=== PATIENT | female | born 1980 | race Caucasian/White ===

== ENCOUNTER → 2016-10-10 | Outpatient (CLI) | payer OTHER ==
--- NOTE | 2016-10-11 06:42 | US ---
EXAMINATION TYPE: US transvaginal DATE OF EXAM: 10/10/2016 COMPARISON: NONE CLINICAL HISTORY: Mennorhagia N92.0,. Irregular cycles, recent removal of IUD TECHNIQUE: TV Date of LMP: 09/24/2016 EXAM MEASUREMENTS: Uterus: 9.7 x 5.4 x 6.0 cm Endometrial Stripe: 1.8 cm Right Ovary: 4.0 x 2.8 x 2.1 cm Left Ovary: 2.6 x 2.1 x 1.9 cm 1. Uterus: Anteverted posterior fundal fibroid seen 2. Endometrium: thickened 3. Right Ovary: wnl 4. Left Ovary: wnl 5. Bilateral Adnexa: wnl 6. Posterior cul-de-sac: wnl Endometrium appears thickened up to 19 mm. Posteriorly in the fundus there is 1.6 x 1.5 cm oval hypoe choic well-circumscribed lesion felt to reflect fibroid subserosal in location. Some peripheral follicles are seen scattered throughout right ovary. No suspicious adnexal masses not ed. IMPRESSION: Abnormal thickening of endometrium, probable 1.6 cm subserosal posterior fibroid.
== END | disposition home or self-care (01) ==
LOC: RADUSWWP 15:11
PROVIDERS: ATTEND Obstetrics & Gynecology
DX: R93.8 Abnormal findings on diagnostic imaging of other specified body structures (principal)
CPT/HCPCS: 76830

== ENCOUNTER → 2016-10-10 | Outpatient (CLI) | payer OTHER ==
--- NOTE | 2016-10-12 10:53 | MM ---
Reason for exam: screening (asymptomatic). Baseline mammogram. History: Family history of breast cancer in 3 maternal aunts and breast cancer in paternal aunt. Excisional biopsy of the left breast. Excisional biopsy of the right breast. Physical Findings: Nurse did not find any significant physical abnormalities on exam. MG Screening Mammo w CAD Bilateral CC and MLO view(s) were taken. The breast tissue is extremely dense which could obscure a lesion on mammography. Finding: There are calcifications in the upper outer quadrant, posterior position of the right breast. Linear scar marker for bilateral breast. These results were verbally communicated with the patient and result sheet given to the patient on 10/10/16. ASSESSMENT: Incomplete: need additional imaging evaluation, BI-RAD 0 RECOMMENDATION: Special view mammogram of the right breast. If lesion persists on supplemental views, image directed ultrasound is recommended. [facility] will attempt to contact patient to return for supplemental views and ultrasound if indicated.
--- NOTE | 2016-10-12 10:54 | MM ---
Reason for exam: additional evaluation requested from abnormal screening. History: Family history of breast cancer in 3 maternal aunts and breast cancer in paternal aunt. Excisional biopsy of the left breast. Excisional biopsy of the right breast. Physical Findings: Breast exam preformed at baseline screening. MG Work Up Mamm w CAD RT CC, MLO, ML, XCCL, ML with magnification, and XCCL with magnification view(s) were taken of the right breast. Finding: There are some layering fine pleomorphic, heterogeneous calcifications in the upper outer quadrant, posterior position of the right breast. These results were verbally communicated with the patient and result sheet given to the patient on 10/10/16. ASSESSMENT: Suspicious, BI-RAD 4 RECOMMENDATION: Stereotactic core biopsy of the right breast. Called Dr. Leonardo with mammographic findings and has scheduled an appointment for the patient for 11/09/16 at 10:[address] Cooper. Biopsy scheduled for 10/16/16 at 2:20. PRELIMINARY REPORT CALLED AND FAXED TO DR. COOPER ON 10/10/16.AT 300/TMP.
== END | disposition home or self-care (01) ==
LOC: RADMAMWWP 15:07
PROVIDERS: ATTEND Obstetrics & Gynecology
DX: R92.1 Mammographic calcification found on diagnostic imaging of breast (principal)
CPT/HCPCS: G0202; G0206; 76830

== ENCOUNTER → 2016-10-16 | Day surgery (SDC) | payer OTHER ==
[~2016-10-16] MED LIST: ALPRAZolam 0.25 MG TAB ONE; BACITRACIN OINT 1 EACH PACKET TOPICAL ONE; LIDOCAINE 1% INJ 10MG/ML (20 ML MDV) ONE; LIDOCAINE 1%-EPI 1:100,000 20 ML VIAL ONE
--- NOTE | 2016-10-16 15:41 | MM ---
EXAMINATION TYPE: MG stereo VAD BX RT DATE OF EXAM: 10/16/2016 COMPARISON: Mammogram and workup October 10, 2016 CLINICAL HISTORY: History of benign excisional biopsies in both breasts approximate 10 years ago presents with abnormal mammogram, suspicious group of calcifications right breast. TECHNIQUE: Stereotactic guided core biopsy of right breast with clip placement and follow-up mammogram. FINDINGS: The procedure of stereotactic guided core biopsy was explained to the patient. Benefits, alternatives, and risks were discussed. An informed consent was then obtained. [facility]. Shortness pathway was lateral approach. I performed the localization, then performed the remainder of the procedure. Overlying skin is cleansed with Betadine. Lidocaine is used as anesthetic into the skin and subcutaneous tissue. Lidocaine with epinephrine is used as anesthetic into the deeper tissue. A vacuum assisted biopsy gun was used to obtain multiple core samples. The patient tolerated the procedure well without any immediate complication. The patient was kept in the radiology department for short stay after the procedure and then discharged home in stable condition. Targeted calcifications are identified in specimen mammogram. Post biopsy mammogram shows the clip to appear in satisfactory position relative to the targeted area of concern on the preprocedure images. Some residual calcifications are present. IMPRESSION: SUCCESSFUL, UNCOMPLICATED STEREOTACTIC GUIDED CORE BIOPSY OF AREA OF CONCERN IN THE RIGHT BREAST, FULL PATHOLOGY RESULTS TO FOLLOW. Intermediate index of suspicion noted at time of procedure. Pathology Results: Benign BREAST, RIGHT, CORE BIOPSY: FIBROCYSTIC CHANGES INCLUDING FIBROSIS, CYSTS, ADENOSIS AND CALCIFICATIONS. PSEUDOANGIOMATOUS STROMAL HYPERPLASIA (PASH). Recommendation Follow up mammogram of the right breast in 6 months. BRYSON
== END ==
LOC: RADMAMWWP 13:23
PROVIDERS: ATTEND Surgery
DX: N60.11 Diffuse cystic mastopathy of right breast (principal); N60.21 Fibroadenosis of right breast; N62 Hypertrophy of breast; R92.1 Mammographic calcification found on diagnostic imaging of breast; R92.8 Other abnormal and inconclusive findings on diagnostic imaging of breast
CPT/HCPCS: 88305; 19081; A4648; J2001

== ENCOUNTER → 2017-07-09 | Outpatient (CLI) | payer MEDICAID ==
[2017-07-09 16:39] LABS: HCT 39.9 % (34.0-46.0); HGB 13.2 gm/dL (11.4-16.0); MCH 31.4 pg (25.0-35.0); MCHC 33.2 g/dL (31.0-37.0); MCV 94.3 fL (80.0-100.0); Mean Platelet Volume 7.4; Platelet Count 237 k/uL (150-450); RBC 4.23 m/uL (3.80-5.40); RDW 11.6 % (11.5-15.5); WBC 8.6 k/uL (3.8-10.6)
[2017-07-09 17:09] LABS: Glucose 99 mg/dL (74-99)
--- NOTE | 2017-07-09 17:48 | US ---
EXAMINATION TYPE: US OB <= 14 wk fetus DATE OF EXAM: 07/09/2017 COMPARISON: NONE CLINICAL HISTORY: Z36 confirm dates; ; unknown LMP EXAM PERFORMED: Transabdominal (TA) EXAM MEASUREMENTS: GESTATIONAL AGE / DATING Physician Established: Not yet established Dates by LMP: LMP unknown Dates by First Scan: No previous; this is first scan Dates by Current Scan for: (8 weeks/2 days) EDC: 02/16/2018 MATERNAL ANATOMY Uterus: 13.3 x 7.9 x 6.4cm; small uterine fibroid = 1.6 x 1.8 x 1.4cm vs. small hypoechoic area withi n larger oval fibroid is noted posterior uterine wall = 6.4 x 4.6 x 3.6cm Right Ovary: 42 x 1.9 x 2.1cm Left Ovary: 3.2 x 2.0 x 1.8cm Presence of free fluid: small amount of free fluid is seen in posterior CDS Presence of corpus luteal cyst: noted in right ovary = 2.6 x 1.7 x 1.3cm Presence of subchorionic bleed: 1.8 x 1.7 x 1.0cm noted upper uterus. GESTATION / SURVEY CRL: 1.8cm (8 weeks/2 days) Yolk Sac (normal less than 6mm): 4.2mm Heart Rate: 174 bpm Rhythm: Normal IUP: Viable IUP Date of LMP: unknown Beta HcG (if available): NA Single, live IUP,8 weeks/2 days, EDC: 02/16/2018, HR 174bpm; subchorionic hemorrhage is noted Urinary bladder is sonolucent. IMPRESSION: 1. Single intrauterine gestation estimated at 8 weeks 2 days gestation based on the crown-rump length . Cardiac activity measures 174 bpm. 2. Uterine fibroid. 3. Right ovarian cyst. 4. Subchorionic hemorrhage measuring 1.8 x 1.7 x 1.0 cm.
[2017-07-10 01:33] LABS: HIV AB P24 Non-Reactive (Non-Reactive); HIV P24 AG Non-Reactive (Non-Reactive)
== END | disposition home or self-care (01) ==
LOC: RADUSWWP 15:43
PROVIDERS: ATTEND Obstetrics & Gynecology
DX: O34.11 Maternal care for benign tumor of corpus uteri, first trimester (principal); D25.9 Leiomyoma of uterus, unspecified; O34.81 Maternal care for other abnormalities of pelvic organs, first trimester; N83.201 Unspecified ovarian cyst, right side; O20.8 Other hemorrhage in early pregnancy; O26.819 Pregnancy related exhaustion and fatigue, unspecified trimester; Z3A.08 8 weeks gestation of pregnancy
CPT/HCPCS: 76801; 82565; 82947; 85027; 86762; 86780; 86850; 86900; 86901; 87340; 87390

== ENCOUNTER 2017-12-15 12:32 | Outpatient (CLI) | payer MEDICAID ==
[2017-12-15 13:13] VITALS: BP 131/63; PULSE 87; RESP 17; TEMP 97.7
--- NOTE | 2017-12-16 09:49 | P.MSEPDOC ---
Presenting Problems - Arrival Data Date of Arrival on Unit: 12/15/17 Time of Arrival on Unit: 12:32 Mode of Transport: Ambulatory - Complaint OB-Reason for Admission/Chief Complaint: Decreased Movement Medical History - Information : 5 Para: 4 Term: 4 : 0 Abortions: Spontaneous or Elective: 0 Number of Living Children: 4 - Gestational Age Gestational Age by NITIN (wks/days): 31 Weeks and 0 Days Review of Systems - Review of Systems Constitutional: No problems Breast: No problems ENT: No problems Cardiovascular: No problems Respiratory: No problems Gastrointestinal: No problems Genitourinary: No problems Musculoskeletal: No problems Neurological: No problems Skin: No problems Vital Signs - Temperature Temperature: 97.7 F Temperature Source: Oral - Pulse Right Brachial Pulse Rate: 87 Pulse Assessment Method: Automatic Cuff - Respirations Respiratory Rate: 17 Oxygen Delivery Method: Room Air O2 Sat by Pulse Oximetry: 100 - Blood Pressure Right Arm Blood Pressure: 131/63 Blood Pressure Mean: 85 Blood Pressure Source: Automatic Cuff Medical Screen Scoring (Pre) - Cervical Exam Dilation: Exam Deferred Effacement: Exam Deferred Membranes: Intact - Uterine Contractions Frequency: N/A Duration: N/A Intensity: N/A - Maternal Vital Signs Maternal Temperature: N/A Maternal Blood Pressure: N/A Signs of Preeclampsia: N/A Maternal Respirations: N/A - Pain Assessment Pain Scale Used: Numeric (1 - 10) Pain Intensity: 0 - Maternal Trauma Maternal Trauma: N/A - Assessment Baseline FHR: 135 Heart Rate - NICHD Category: Category I (Normal) = 0 NST: Reactive Position: N/A Station: N/A - Total Score Total Score (Pre): 0 - Level of Risk Level of Risk: Low (0-5) Physician Notification (Pre) - Physician Notified Physician Notified Date: 12/15/17 Physician Notified Time: 12:56 Physician/Practitioner Notifed:: Dr Sheth Spoke With: Dr Sheth New Order Received: Yes ([facility]) - Notification Comment Comment: pt here with c/o decreased movement, pt can feel moving but just feels "different" Disposition - Disposition OB Disposition: Discharge to home, Written follow up instructions reviewed Discharge Date: 12/15/17 Discharge Time: 13:00 I agree with the RN Medical Screening Exam: Yes Risk & Benefit of care provided described in d/c instruction: Yes Diagnosis: RELATED CONDITIONS, UNSPECIFIED, THIRD TRIMESTER ( Decreased movement)
== END 2017-12-15 13:00 | disposition home or self-care (01) ==
LOC: FBPOP 12:32
PROVIDERS: ATTEND Obstetrics & Gynecology
DX: O36.8130 Decreased fetal movements, third trimester, not applicable or unspecified (principal); Z3A.31 31 weeks gestation of pregnancy
CPT/HCPCS: 59025; 99213

== ENCOUNTER 2018-02-10 07:00 | Inpatient (IN) | payer MEDICAID ==
[2018-02-10] MEDS ORDERED: OXYTOCIN 20 UNITS/1000 ML NS 1,000 ML IV SCH ×2 (07:27→17:15)
[2018-02-10] MEDS ORDERED: LIDOCAINE 0.5% (PF) 5 MG/ML (50 ML SDV) SQ PRN (07:27)
[2018-02-10] MEDS ORDERED: METHYLERGONOVINE 0.2 MG/ML 1 ML AMP IM PRN (07:27)
[2018-02-10] MEDS ORDERED: TERBUTALINE 1 MG/ML VIAL SQ PRN (07:27)
[2018-02-10] MEDS ORDERED: CARBOPROST TROMETHAMINE 250 MCG/ML 1 ML AMP IM PRN (07:27)
[2018-02-10] MEDS ORDERED: OXYTOCIN 10 UNIT/ML 1 ML VIAL IM PRN (07:27)
[2018-02-10 07:40] VITALS: BMI 27.8
[2018-02-10] MEDS: LACTATED RINGERS 1,000 ML IV SCH ×2 (07:45→12:32)
[2018-02-10 08:04] LABS: Basophils % (A) 0 %; Eosinophils # (A) 0.1 k/uL (0-0.7); Eosinophils % (A) 1 %; HCT 34.2 % (34.0-46.0); HGB 11.7 gm/dL (11.4-16.0); Lymphocytes # (A) 2.8 k/uL (1.0-4.8); Lymphocytes % (A) 25 %; MCH 32.9 pg (25.0-35.0); MCV 96.7 fL (80.0-100.0); Mean Platelet Volume 8.6; Monocytes # (A) 0.5 k/uL (0-1.0); Monocytes % (A) 5 %; Neutrophils # (A) 7.3 k/uL (1.3-7.7); Neutrophils % (A) 67 %; Platelet Count 172 k/uL (150-450); RBC 3.54 m/uL (3.80-5.40); RDW 13.6 % (11.5-15.5)
--- NOTE | 2018-02-10 08:15 | P.HPOB ---
History of Present Illness H&P Date: 02/10/18 Chief Complaint: Two-vessel cord. Induction of labor. This patient is a pleasant 37-year-old 6 para 4 female estimated date of confinement 02/16/2018 estimated gestational age 39 and one sevenths weeks which is changed by a 8 week ultrasound who presents to labor and delivery for induction of labor secondary to a two-vessel umbilical cord. Patient's history is such that an ultrasound done for anatomy showed a two-vessel umbilical cord and an EIF of the left ventricle. Patient was referred to maternal- medicine and evaluation there showed normal heart echo, two-vessel cord with normal anatomy. Patient has had normal growth ultrasounds and antepartum testing. Patient now presents for delivery secondary to the two-vessel cord. Review of Systems Gastrointestinal: Reports heartburn Genitourinary: Reports Menstruation: Reports amenorrhea Past Medical History Additional Past Medical History / Comment(s): Patient has a known history of kidney stones. Patient has known severe varicose veins bilateral lower extremities., She also has a history of diverticulitis. History of Any Multi-Drug Resistant Organisms: None Reported Past Surgical History: Adenoidectomy, Breast Surgery, Tonsillectomy Past Anesthesia/Blood Transfusion Reactions: No Reported Reaction Past Psychological History: No Psychological Hx Reported Smoking Status: Never smoker Past Alcohol Use History: None Reported Past Drug Use History: None Reported - Past Family History Mother Family Medical History: Respiratory Disorder Medications and Allergies Home Medications Medication Instructions Recorded Confirmed Type Jdi-Mbrf-Quqmf Acid 1 each PO DAILY 01/28/14 02/10/18 History [-U Capsule] Aspirin [Children's Aspirin] 1 tab PO DAILY 12/15/17 02/10/18 History Allergies Allergy/AdvReac Type Severity Reaction Status Date / Time No Known Allergies Allergy Verified 02/10/18 07:27 Exam Vital Signs Temp Pulse Resp BP 02/10/18 07:30 97.8 F 99 16 134/83 Intake and Output 02/09/18 02/10/18 02/10/18 22:59 06:59 14:59 Other: Weight 75.75 kg - OBG Physical Exam Abdomen: bowel sounds normal, no diffuse tenderness, no bruit present, no guarding noted, no hepatomegaly, no splenomegaly, no mass Vulva: both: normal Vagina: normal moisture, no discharge Cervix: no lesion (Cervix is 2 cm 50% effaced -2 station.), no discharge Uterus: enlarged (Fundal height is 38 cm) Results blood work shows she is O-, rubella immune, RPR is nonreactive, hepatitis B is negative, HIV is nonreactive, Glucola was abnormal with a normal three-hour gtt., cardiac echo was normal, level III ultrasound showed no abnormalities. Assessment and Plan Assessment: This is a pleasant 37-year-old 6 para 4 female 39 and one sevenths weeks gestation who is being admitted for induction of labor secondary to 2 vessel umbilical cord. Plan is induction of labor and anticipate vaginal delivery. (1) Two vessel umbilical cord Current Visit: Yes Status: Acute Code(s): Q27.0 - CONGENITAL ABSENCE AND HYPOPLASIA OF UMBILICAL ARTERY SNOMED Code(s): 180855554 (2) Elderly multigravida in third trimester Current Visit: Yes Status: Acute Code(s): O09.523 - SUPERVISION OF ELDERLY MULTIGRAVIDA, THIRD TRIMESTER SNOMED Code(s): 492478203
[2018-02-10] MEDS ORDERED: ROPIVACAINE 100 MG, fentaNYL (PF) 200 MCG in SODIUM CHLORIDE 0.9% 76 ML EPIDURAL ONE (12:33)
[2018-02-10] MEDS ORDERED: BENZOCAINE/MENTHOL SPRAY 1 GM/SPRAY AEROSOL TOPICAL PRN (17:06)
[2018-02-10] MEDS ORDERED: WITCH HAZEL 1 EACH MED..PAD TOPICAL PRN (17:06)
[2018-02-10] MEDS ORDERED: ZOLPIDEM 5 MG TAB PO PRN (17:06)
[2018-02-10] MEDS ORDERED: Rhogam IMMUNE GLOBULIN 1,500 UNIT/1 ML IM ONE (17:06)
[2018-02-10] MEDS ORDERED: HYDROCORTISONE 2.5% RECTAL CREAM 30 GM TUBE RECTAL PRN (17:06)
[2018-02-10] MEDS ORDERED: LANOLIN CREAM 5 GM TUBE TOPICAL PRN (17:06)
[2018-02-10] MEDS ORDERED: diphenhydrAMINE 25 MG CAP PO PRN (17:06)
[2018-02-10] MEDS ORDERED: diphenhydrAMINE 50 MG/ML 1 ML VIAL IVP PRN (17:06)
[2018-02-10] MEDS ORDERED: SIMETHICONE 80 MG CHEWABLE PO PRN (17:06)
--- NOTE | 2018-02-10 17:10 | P.PROBDLV ---
Vaginal Delivery Note - . Vaginal Delivery Note: Normal vaginal delivery viable male infant Apgars 8 and 9 delivery time 1646 hrs. Please see dictated H&P for intimate details of this patient's admission. Brief summary this is a pleasant 37-year-old 6 para 4 female estimated gestational age 39 and one sevenths weeks who presents to labor and delivery for induction secondary to a 2 vessel umbilical cord. Patient is admitted has artificial rupture membranes at 2 cm dilated. She has Pitocin induction of labor per protocol. Patient's labor progresses and she does get an epidural for pain control. Patient continues to progress and gets complete. She pushes approximately 2 times pushes the head over the intact perineum. Mouth and nares are bulb suctioned. There is a very loose nuchal cord which is reduced. With gentle downward traction we then have deliver the anterior posterior shoulder and rest this infant's body. This is a vigorous viable male Apgars are 8 and 9 delivery time was 1646 hrs. After delivery of the the umbilical cord is doubly clamped and cut does appear to have 2 vessels. The infant is late on the mother's abdomen. The cord was delayed and clamping until was done pulsating. The placenta spontaneously delivered intact. Estimated blood loss is approximately 100 mL. There is a first-degree posterior laceration is repaired with 3-0 Vicryl in the usual fashion. Excellent reapproximation is noted. There is a small left periurethral lacerations not require sutures. All counts are correct 3. There are no complications. Infant and mother stable delivery room.
[2018-02-10] MEDS: IBUPROFEN 600 MG TAB PO PRN (20:07)
[2018-02-10] MEDS: SENNOSIDES-DOCUSATE SODIUM 1 EACH TAB PO SCH (20:14)
[2018-02-10] MEDS: ACETAMINOPHEN TAB 325 MG TAB PO PRN (23:44)
[2018-02-11] MEDS: IBUPROFEN 600 MG TAB PO PRN ×2 (02:21→10:55)
[2018-02-11 04:31] VITALS: RESP 16
--- NOTE | 2018-02-11 06:35 | P.PNOBGVD ---
Subjective - Subjective Patient reports: Reports appetite normal, Reports voiding normally, Reports pain well controlled, Reports ambulating normally : doing well Objective - Latest Vital Signs Latest vital signs: Vital Signs Temp Pulse Resp BP 02/11/18 04:00 97.6 F 78 16 123/80 02/11/18 00:00 96.8 F L 80 14 115/70 02/10/18 20:00 97.9 F 97 16 132/72 02/10/18 18:57 97.4 F L 83 14 121/80 02/10/18 18:27 92 14 121/55 02/10/18 17:57 82 14 118/72 02/10/18 17:42 72 16 104/65 02/10/18 17:27 70 16 125/59 02/10/18 17:12 70 14 108/53 02/10/18 16:57 97.6 F 78 16 112/62 02/10/18 07:30 97.8 F 99 16 134/83 Intake and Output 02/10/18 02/10/18 02/11/18 14:59 22:59 06:59 Intake Total 2400 600 Output Total 450 Balance 2400 -450 600 Intake: IV 2400 Lactated Ringers 1,000 ml 2400 @ 125 mls/hr IV .Q8H [facility], [facility] Rx#:[id number] Oral 600 Output: Estimated Blood Loss 450 Other: # Voids 1 1 Weight 75.75 kg - Exam Lungs: bilateral: normal Chest: Normal S1, Normal S2 Extremities: Present: normal Abdomen: Present: normal appearance, soft Uterus: Present: normal, firm - Labs Labs: Abnormal Lab Results - Last 24 Hours (Table) 02/10/18 Range/Units 07:38 WBC 11.0 H (3.8-10.6) k/uL RBC 3.54 L (3.80-5.40) m/uL Assessment and Plan Assessment: Post day #1. Patient is resting without complaints and wishes to go home. Vital signs are stable she is afebrile. Uterus is firm nontender she's having normal lochia. My impression this is a normal course. Plan is to continue routine care discharge home later today. (1) Two vessel umbilical cord Current Visit: Yes Status: Acute Code(s): Q27.0 - CONGENITAL ABSENCE AND HYPOPLASIA OF UMBILICAL ARTERY SNOMED Code(s): 408499854 (2) Elderly multigravida in third trimester Current Visit: Yes Status: Acute Code(s): O09.523 - SUPERVISION OF ELDERLY MULTIGRAVIDA, THIRD TRIMESTER SNOMED Code(s): 239687780
--- NOTE | 2018-02-11 06:44 | P.DS ---
Providers Date of admission: 02/10/18 07:11 Expected date of discharge: 02/11/18 Attending physician: Tanner Leonardo Primary care physician: Stated None - Discharge Diagnosis(es) (1) Two vessel umbilical cord Current Visit: Yes Status: Acute (2) Elderly multigravida in third trimester Current Visit: Yes Status: Acute Hospital Course: Please see dictated H&P for intimate details of this patient's admission. Brief summary this is a pleasant 37-year-old 6 para 4 female 39 and one sevenths weeks gestation admitted to labor and delivery secondary to a 2 vessel umbilical cord. Patient is admitted she is uncomplicated induction of labor was on have a vaginal delivery viable male infant. Please see dictated delivery note. day #1 patient's felt to be stable for discharge home follow up with me in 6 weeks. Procedures: Induction of labor and normal vaginal delivery Patient Condition at Discharge: Good Plan - Discharge Summary Discharge Rx Participant: Yes New Discharge Prescriptions: New Ibuprofen [Motrin] 600 mg PO Q6HR PRN #40 tab PRN Reason: Mild Pain Or Fever >= 100.5 No Action Dzz-Ggnl-Odfjg Acid [-U Capsule] 1 each PO DAILY Aspirin [Children's Aspirin] 1 tab PO DAILY Discharge Medication List Moc-Bsga-Qjcce Acid [-U Capsule] 1 each PO DAILY 01/28/14 [ History] Aspirin [Children's Aspirin] 1 tab PO DAILY 12/15/17 [History] Ibuprofen [Motrin] 600 mg PO Q6HR PRN #40 tab 02/11/18 [Rx] Follow up Appointment(s)/Referral(s): Tanner Leonardo MD [STAFF PHYSICIAN] - 1 Week Patient Instructions/Handouts: Vaginal Delivery (DC) Activity/Diet/Wound Care/Special Instructions: No intercourse or anything per vagina for 6 weeks. Please call if any fever, chills, excessive vaginal bleeding, and/or abdominal pain. Discharge Disposition: HOME SELF-CARE
[2018-02-11] MEDS: SENNOSIDES-DOCUSATE SODIUM 1 EACH TAB PO SCH (07:53)
[2018-02-11] MEDS: ACETAMINOPHEN TAB 325 MG TAB PO PRN ×2 (07:53→15:43)
[2018-02-11 18:04] VITALS: BP 130/75; PULSE 81; TEMP 98
== END 2018-02-11 17:38 | disposition home or self-care (01) | DRG 807 ==
LOC: 4FBP 07:11
PROVIDERS: ADMIT Obstetrics & Gynecology; ATTEND Obstetrics & Gynecology
PROC: 10907ZC Drainage of Amniotic Fluid, Therapeutic from Products of Conception, Via Natural or Artificial Opening (ICD-10-PCS; principal; 2018-02-10)
PROC: 3E0R3NZ Introduction of Analgesics, Hypnotics, Sedatives into Spinal Canal, Percutaneous Approach (ICD-10-PCS; principal; 2018-02-10)
PROC: 3E033VJ Introduction of Other Hormone into Peripheral Vein, Percutaneous Approach (ICD-10-PCS; principal; 2018-02-10)
PROC: 10E0XZZ Delivery of Products of Conception, External Approach (ICD-10-PCS; principal; 2018-02-10)
PROC: 00HU33Z Insertion of Infusion Device into Spinal Canal, Percutaneous Approach (ICD-10-PCS; principal; 2018-02-10)
DX: O69.89X0 Labor and delivery complicated by other cord complications, not applicable or unspecified (principal); Z37.0 Single live birth; O69.81X0 Labor and delivery complicated by cord around neck, without compression, not applicable or unspecified; Z3A.39 39 weeks gestation of pregnancy; Z79.82 Long term (current) use of aspirin; Z87.442 Personal history of urinary calculi
CPT/HCPCS: 85025; 85461; 86850; 86900; 86901; 88307

== ENCOUNTER → 2020-07-07 | Outpatient (CLI) | payer OTHER ==
--- NOTE | 2020-07-09 11:48 | MM ---
Reason for exam: screening (asymptomatic). Last mammogram was performed 3 years and 9 months ago. History: Family history of breast cancer in 3 maternal aunts and breast cancer in paternal aunt. Benign MG stereo VAD BX RT of the right breast, October 16, 2016. Excisional biopsy of the left breast. Excisional biopsy of the right breast. Physical Findings: A clinical breast exam by your physician is recommended on an annual basis and results should be correlated with mammographic findings. MG Screening Mammo w CAD Bilateral CC and MLO view(s) were taken. Prior study comparison: October 10, 2016, right breast MG work up mamm w CAD RT. October 10, 2016, bilateral MG screening mammo w CAD. The breast tissue is heterogeneously dense. This may lower the sensitivity of mammography. Partially obscured nodularity upper outer left breast zone B. This finding is changed when compared with previous exams. ASSESSMENT: Incomplete: need additional imaging evaluation, BI-RAD 0 RECOMMENDATION: Special view mammogram and ultrasound of the left breast. [facility] will attempt to contact patient to return for supplemental views and ultrasound.
== END | disposition home or self-care (01) ==
LOC: RADMAMWWP 10:13
PROVIDERS: ATTEND Obstetrics & Gynecology
DX: Z12.31 Encounter for screening mammogram for malignant neoplasm of breast (principal); R92.8 Other abnormal and inconclusive findings on diagnostic imaging of breast
CPT/HCPCS: 77067

== ENCOUNTER → 2020-07-21 | Outpatient (CLI) | payer OTHER ==
--- NOTE | 2020-07-21 13:30 | MM ---
Reason for exam: additional evaluation requested from abnormal screening. Last mammogram was performed less than 1 month ago. History: Family history of breast cancer in 3 maternal aunts and breast cancer in paternal aunt. Benign MG stereo VAD BX RT of the right breast, October 16, 2016. Excisional biopsy of the left breast. Excisional biopsy of the right breast. Physical Findings: Nurse did not find any significant physical abnormalities on exam. MG Work Up Mamm w CAD LT Spot compression CC, spot compression MLO, and LM view(s) were taken of the left breast. Prior study comparison: July 07, 2020, bilateral MG screening mammo w CAD. October 10, 2016, right breast MG work up mamm w CAD RT. The breast tissue is heterogeneously dense. This may lower the sensitivity of mammography. Spot views show no definite persisting abnormality. Ultrasound recommended given the degree of breast density. These results were verbally communicated with the patient and result sheet given to the patient on 07/21/20. ASSESSMENT: Incomplete: need additional imaging evaluation, BI-RAD 0 RECOMMENDATION: Ultrasound of the left breast. (9-3 o'clock)
--- NOTE | 2020-07-21 13:32 | USB ---
Reason for exam: additional evaluation requested from abnormal screening. History: Family history of breast cancer in 3 maternal aunts and breast cancer in paternal aunt. Benign MG stereo VAD BX RT of the right breast, October 16, 2016. Excisional biopsy of the left breast. Excisional biopsy of the right breast. US Breast Workup Limited LT Left limited breast ultrasound including focal area of concern, retroareolar and axilla demonstrates a 1.1 x 1.1 x 0.6cm solid, isoechoic lesion at 10 o'clock, a 0.5 x 0.7 x 0.4cm solid, hypoechoic lesion at 11 o'clock and a 0.8 x 0.7 x 0.6cm solid, isoechoic lesion at 2 o'clock. All are very similar, probable fibroadenoma. 6 month follow up recommended. These results were verbally communicated with the patient and result sheet given to the patient on 07/21/20. ASSESSMENT: Probably benign, BI-RAD 3 RECOMMENDATION: Ultrasound of the left breast in 6 months.
== END | disposition home or self-care (01) ==
LOC: RADMAMWWP 09:46
PROVIDERS: ATTEND Obstetrics & Gynecology
DX: R92.8 Other abnormal and inconclusive findings on diagnostic imaging of breast (principal)
CPT/HCPCS: 77065

== ENCOUNTER → 2021-02-17 | Outpatient (CLI) | payer OTHER ==
--- NOTE | 2021-02-17 12:28 | USB ---
Reason for exam: follow-up at short interval from prior study. History: Family history of breast cancer in 3 maternal aunts and breast cancer in paternal aunt. Benign MG stereo VAD BX RT of the right breast, October 16, 2016. Excisional biopsy of the left breast. Excisional biopsy of the right breast. Physical Findings: Nurse did not find any significant physical abnormalities on exam. US Breast Limited LT Left limited breast ultrasound including focal area of concern, retroareolar and axilla demonstrates a 1.1 x 0.8 x 1.1cm hypoechoic lesion at 10 o'clock, a 0.7 x 0.4 x 0.6cm hypoechoic lesion at 11 o'clock and a 0.8 x 0.6 x 0.9cm hypoechoic lesion at 2 o'clock. Circumscribed, oval with posterior thru transmission. Unchanged for 6 months. Fibroadenomas are suspected. Continued follow up can be performed. Scanned 9-3 o'clock. These results were verbally communicated with the patient and result sheet given to the patient on 02/17/21. ASSESSMENT: Probably benign, BI-RAD 3 RECOMMENDATION: Follow-up diagnostic mammogram of both breasts in 6 months. Back on schedule. Ultrasound of the left breast in 6 months.
== END | disposition home or self-care (01) ==
LOC: RADUSWWP 09:52
PROVIDERS: ATTEND Obstetrics & Gynecology
DX: N64.89 Other specified disorders of breast (principal); Z80.3 Family history of malignant neoplasm of breast

== ENCOUNTER → 2021-07-06 | Outpatient (CLI) | payer OTHER ==
--- NOTE | 2021-07-06 16:32 | US ---
EXAMINATION TYPE: US transvaginal DATE OF EXAM: 07/06/2021 COMPARISON: NONE CLINICAL HISTORY: N92.0 MENORRHAGIA. Menorrhagia. . TECHNIQUE: Transvaginal (TV). Date of LMP: 06/17/2021 EXAM MEASUREMENTS: Uterus: 10.5 x 7.5 x 6.4 cm Endometrial Stripe: 1.45 cm Right Ovary: 4.0 x 2.5 x 2.4 cm Left Ovary: 3.1 x 1.8 x 1.7 cm 1. Uterus: Uterus appears prominent. Anteverted Hypoechoic area seen posterior uterus: 2.6 x 2.1 x 1.8 cm. A second hypoechoic area seen measurin.7 x 1.8 x 1.5 cm. These may be fibroids. Subcenti meter anechoic areas seen in cervix. 2. Endometrium: Appears to be heterogeneous, measures 1.45 cm. 3. Right Ovary: Anechoic area seen measuring 1.2 x 0.8 x 0.8 cm. 4. Left Ovary: Subcentimeter anechoic areas seen. 5. Bilateral Adnexa: Isoechoic, solid-appearing area with anechoic component seen within the right a dnexa: 3.3 x 2.0 x 1.9 cm. 6. Posterior cul-de-sac: Fluid seen. IMPRESSION: 1. Thickened endometrial canal near the fundus within an enlarged uterus. 2. Uterine fibroids. 3. Right ovarian cyst. 4. Solid area within the right adnexa.
== END | disposition home or self-care (01) ==
LOC: RADUSWWP 09:43
PROVIDERS: ATTEND Obstetrics & Gynecology
DX: D25.9 Leiomyoma of uterus, unspecified (principal); N83.201 Unspecified ovarian cyst, right side; N88.8 Other specified noninflammatory disorders of cervix uteri
CPT/HCPCS: 76830

== ENCOUNTER → 2021-07-21 | Outpatient (CLI) | payer OTHER ==
--- NOTE | 2021-07-22 08:33 | MM ---
Reason for exam: additional evaluation requested from prior study. Last mammogram was performed 1 year ago. History: Family history of breast cancer in 3 maternal aunts and breast cancer in paternal aunt. Benign MG stereo VAD BX RT of the right breast, October 16, 2016. Excisional biopsy of the left breast. Excisional biopsy of the right breast. Physical Findings: A clinical breast exam by your physician is recommended on an annual basis and results should be correlated with mammographic findings. MG Diagnostic Mammo w CAD ANTOINETTE Bilateral CC and MLO view(s) were taken. Prior study comparison: July 21, 2020, left breast MG work up mamm w CAD LT. July 07, 2020, bilateral MG screening mammo w CAD. The breast tissue is heterogeneously dense. This may lower the sensitivity of mammography. Finding #1: There is a 10 mm equal density (isodense), obscured oval mass in the upper inner quadrant of the left breast. Finding #2: There are typically benign calcifications in the left breast. These results were verbally communicated with the patient and result sheet given to the patient on 07/21/21. ASSESSMENT: Incomplete: need additional imaging evaluation, BI-RAD 0 RECOMMENDATION: Ultrasound of the left breast.
--- NOTE | 2021-07-22 08:44 | USB ---
Reason for exam: additional evaluation requested from abnormal screening. History: Family history of breast cancer in 3 maternal aunts and breast cancer in paternal aunt. Benign MG stereo VAD BX RT of the right breast, October 16, 2016. Excisional biopsy of the left breast. Excisional biopsy of the right breast. Physical Findings: A clinical breast exam by your physician is recommended on an annual basis and results should be correlated with mammographic findings. US Breast Limited LT Left limited breast ultrasound including focal area of concern, retroareolar and axilla demonstrates three hypoechoic lesions measuring 1.2 x 0.9 x 1.1cm at 10 o'clock, 0.7 x 0.4 x 0.6cm at 11 o'clock and 0.9 x 0.6 x 0.9cm at 2 o'clock. These results were verbally communicated with the patient and result sheet given to the patient on 07/21/21. ASSESSMENT: Benign, BI-RAD 2 RECOMMENDATION: Follow-up diagnostic mammogram of both breasts in 6 months. Ultrasound of the left breast in 6 months.
== END | disposition home or self-care (01) ==
LOC: RADMAMWWP 14:55
PROVIDERS: ATTEND Obstetrics & Gynecology
DX: N63.22 Unspecified lump in the left breast, upper inner quadrant (principal); R92.1 Mammographic calcification found on diagnostic imaging of breast; Z80.3 Family history of malignant neoplasm of breast
CPT/HCPCS: 77066

== ENCOUNTER 2021-08-02 05:53 | Day surgery (SDC) | payer OTHER ==
[2021-07-29 11:21] VITALS: BMI 24.1
--- NOTE | 2021-08-01 07:31 | P.HPOB ---
History of Present Illness H&P Date: 08/01/21 Chief Complaint: Menorrhagia. This patient is a pleasant 40-year-old 6 para 4 female who presented to my office with complaints of heavy long instrument bleeding. Patient subsequently had an ultrasound performed which showed multiple small fibroids and a heterogeneous endometrium of 1.45 cm. Patient now is presenting for hysteroscopy D&C for further evaluation. Review of Systems Genitourinary: Reports as per HPI, Reports menorrhagia Menstruation: Reports as per HPI Past Medical History Past Medical History: Deep Vein Thrombosis (DVT) Additional Past Medical History / Comment(s): Patient has a known history of kidney stones. Patient has known severe varicose veins bilateral lower extremities., She also has a history of diverticulitis. EXCESSIVE BLEEDING AND CLOTTING WITH MENSES AND THICKENED UTERINE WALL History of Any Multi-Drug Resistant Organisms: None Reported Past Surgical History: Adenoidectomy, Breast Surgery, Tonsillectomy Additional Past Surgical History / Comment(s): LT X2, 1 RT BREAST LUMPECTOMIES- BENIGN Past Anesthesia/Blood Transfusion Reactions: No Reported Reaction Smoking Status: Never smoker - Past Family History Mother Family Medical History: Cancer Additional Family Medical History / Comment(s): MELANOMA Medications and Allergies Home Medications Medication Instructions Recorded Confirmed Type Zmj-Mmag-Hnlsf Acid 1 each PO DAILY 01/28/14 02/10/18 History [-U Capsule] Aspirin [Children's Aspirin] 1 tab PO DAILY 12/15/17 02/10/18 History Ibuprofen [Motrin] 600 mg PO Q6HR PRN #40 tab 02/11/18 Rx Allergies Allergy/AdvReac Type Severity Reaction Status Date / Time No Known Allergies Allergy Verified 02/10/18 07:27 Exam - OBG Physical Exam Abdomen: bowel sounds normal, no diffuse tenderness, no bruit present, no guarding noted, no hepatomegaly, no splenomegaly, no mass Vulva: both: normal Vagina: normal moisture, no discharge Cervix: no lesion, no discharge Uterus: normal size, normal contour Adnexa: both: normal Results Ultrasound shows a uterus is 10.5 x 7.5 x 6.4 cm. Several small fibroids the largest is 2.6 cm. Endometrium was heterogeneous measuring 1.45 cm. Assessment and Plan Assessment: This is a pleasant 40-year-old 6 para 4 female with menorrhagia and heterogeneous endometrium. Plan is hysteroscopy and D&C for further evaluation and treatment. Patient does understand the surgery and risks and risks of infection, bleeding, possible uterine perforation. All the patient's questions are answered and a written consent is obtained. (1) Menorrhagia Status: Acute Code(s): N92.0 - EXCESSIVE AND FREQUENT MENSTRUATION WITH REGULAR CYCLE SNOMED Code(s): 997006148 (2) Uterine fibroid Status: Acute Code(s): D25.9 - LEIOMYOMA OF UTERUS, UNSPECIFIED SNOMED Code(s): 24307691
[~2021-08-02 05:53] MED LIST changes: -ALPRAZolam 0.25 MG TAB ONE; -BACITRACIN OINT 1 EACH PACKET TOPICAL ONE; -LIDOCAINE 1% INJ 10MG/ML (20 ML MDV) ONE; -LIDOCAINE 1%-EPI 1:100,000 20 ML VIAL ONE; +Pre Op ABX Message 1 EACH MISC MISCELLANE ONE
[2021-08-02] MEDS ORDERED: LIDOCAINE 1% (10MG/ML) FOR IV START INTRADERMA PRN (06:01)
[2021-08-02] MEDS ORDERED: LACTATED RINGERS 1,000 ML IV SCH (06:01)
[2021-08-02] MEDS ORDERED: DEXAMETHASONE SOD PHOSPHATE 4 MG/ML 1 ML VIAL IV ONE (06:01)
[2021-08-02] MEDS ORDERED: ONDANSETRON 4 MG/2 ML VIAL IVP ONE (06:01)
[2021-08-02] MEDS ORDERED: SCOPOLAMINE 1.5MG/72HR PATCH TRANSDERM ONE (06:01)
[2021-08-02] MEDS ORDERED: PROPOFOL 10 MG/ML 20 ML VIAL IV ONE (06:53)
[2021-08-02] MEDS ORDERED: LIDOCAINE 1% INJ 10MG/ML (20 ML MDV) ONE (06:53)
[2021-08-02] MEDS ORDERED: MIDAZOLAM 2 MG/2 ML VIAL ONE (06:53)
[2021-08-02] MEDS ORDERED: HYDROmorphone 0.5 MG/0.5 ML SYRINGE IVP PRN (07:00)
--- NOTE | 2021-08-02 07:28 | P.OP ---
Date of Procedure: 08/02/21 Preoperative Diagnosis: Menorrhagia Postoperative Diagnosis: Same Procedure(s) Performed: #1: Hysteroscopy. #2: Dilation and curettage Anesthesia: MAC Surgeon: Tanner Leonardo Estimated Blood Loss (ml): 10 Urine output (ml): 30 Pathology: other (Uterine curettings) Condition: stable Disposition: PACU Indications for Procedure: Please see dictated H&P for intimate details of this patient's admission. In brief summary this pleasant 40-year-old multiparous patient with progressively worsening menorrhagia who had an ultrasound shows heterogeneous endometrium. Patient now presents for hysteroscopy D&C for further evaluation. Patient does understand the surgery and risks and risks of infection, bleeding, possible uterine perforation. All the patient's questions are answered written consent is obtained. Operative Findings: This patient had a uterus is sounded to 9.5 cm and had multiple polypoid structures consistent with endometrial polyps Description of Procedure: This patient is taken to the operating room where she is laid in the supine position. She subsequently goes under general mask anesthesia without incident. With an adequate level of anesthesia she's placed in dorsal lithotomy position. She has a vaginal perineal prep and drape. Examination under anesthesia shows a mid position uterus. Weighted speculum was placed in the posterior vagina. The bladder is then drained for 30 mL of clear urine. I grabbed the anterior lip of the cervix with an Allis clamp. The uterus is then sounded to 9.5 cm. I then gently dilate the endocervix to allow the hysteroscope into the uterine cavity. Hysteroscopy is performed and the uterine cavity is visualized. There are multiple small polypoid structures. No obvious areas of fibroids impinging on the cavity. With this the hysteroscope was removed. Cervix is dilated more to allow a polyp forceps easily and uterine cavity. Multiple passes are made and some polyps are removed. A gentle but vigorous 4 Quadrant curettage is then done for adequate sampling. This tissue is sent off to pathology. This completed there is minimal bleeding. The Allis clamp and weighted speculum removed. All counts are correct 3. There are no complications. Patient is awakened from anesthesia and taken recovery room satisfactory condition.
[2021-08-02 07:30] VITALS: TEMP 98.1
[2021-08-02] MEDS ORDERED: KETOROLAC 15 MG/ML 1 ML VIAL IVP ONE (07:32)
[2021-08-02 08:12] VITALS: RESP 18
[2021-08-02 08:29] VITALS: BP 117/77; PULSE 64
== END 2021-08-02 08:54 | disposition home or self-care (01) ==
LOC: OR 05:53
PROVIDERS: ATTEND Obstetrics & Gynecology
DX: N92.0 Excessive and frequent menstruation with regular cycle (principal); Z86.718 Personal history of other venous thrombosis and embolism; Z87.442 Personal history of urinary calculi; I83.90 Asymptomatic varicose veins of unspecified lower extremity; Z87.19 Personal history of other diseases of the digestive system; Z98.890 Other specified postprocedural states; Z80.8 Family history of malignant neoplasm of other organs or systems; Z79.82 Long term (current) use of aspirin
CPT/HCPCS: 81025; 88305; 58558; J2250; J1100; J2001; J1885; J2704; J1170

== ENCOUNTER → 2021-09-07 | Outpatient (CLI) | payer OTHER ==
--- NOTE | 2021-09-07 15:57 | US ---
EXAMINATION TYPE: US transvaginal DATE OF EXAM: 09/07/2021 COMPARISON: Prior pelvic ultrasound July 06, 2021 CLINICAL HISTORY: N83.201 R ovarian cyst. TECHNIQUE: Transvaginal (TV). Transabdominal sonographic images of the pelvis were acquired. Trans vaginal sonographic images were medically necessary to better assess the following anatomy: Date of LMP: 09-07-21 EXAM MEASUREMENTS: Uterus: 10.1 x 5.8 x 6.2 cm Endometrial Stripe: 2.3 cm Right Ovary: 3.2 x 2.2 x 2.2 cm Left Ovary: 3.1 x 2.0 x 1.9 cm 1. Uterus: Anteverted, 2 fibroids largest measuring 1.5 x 1.5 x 1.6cm 2. Endometrium: thickened 3. Right Ovary: exophytic cyst measuring 1.7 x 1.3 x 1.5cm 4. Left Ovary: wnl 5. Bilateral Adnexa: wnl 6. Posterior cul-de-sac: minimal free fluid Tiny nabothian cysts in the cervix are redemonstrated initially. Endometrial stripe is abnormally thi ckened on current study. Trace free fluid in pelvic cul-de-sac is improved from prior. Uterus has 1.5 cm hypoechoic lesion in the fundus felt to reflect small fibroid, smaller or different lesion versus prior exam. Ovaries symmetric and normal in size with 1.7 cm simple appearing thin-walled cyst right ovary on cur rent exam in the periphery significantly changed from prior study. No new adnexal masses noted. O-RAD S 2 lesion. IMPRESSION: As above. Consider dilatation and curettage investigation especially if patient has sympt oms of increased bleeding.
== END | disposition home or self-care (01) ==
LOC: RADUSWWP 13:59
PROVIDERS: ATTEND Obstetrics & Gynecology
DX: N88.8 Other specified noninflammatory disorders of cervix uteri (principal); D25.9 Leiomyoma of uterus, unspecified; N83.291 Other ovarian cyst, right side
CPT/HCPCS: 76830

== ENCOUNTER → 2021-12-08 | Day surgery (SDC) | payer OTHER ==
[2021-12-06 10:36] VITALS: BMI 24.1
--- NOTE | 2021-12-07 17:54 | P.HPOB ---
History of Present Illness H&P Date: 12/07/21 Chief Complaint: Menorrhagia requesting endometrial ablation. This patient is a pleasant 40-year-old 6 para 4 female whose had long- standing menorrhagia. Previous evaluation has included an ultrasound which showed an enlarged uterus with multiple small fibroids and heterogeneous endometrium. Patient had a D&C done in July of this year that showed normal pathology. Patient's continued to have bleeding problems and at this time is asking to attempt a endometrial ablation. Patient's is had a vasectomy for control. She is done having children. Review of Systems Genitourinary: Reports as per HPI, Reports menorrhagia Menstruation: Reports as per HPI, Reports menses 8 or > days Past Medical History Past Medical History: Deep Vein Thrombosis (DVT) Additional Past Medical History / Comment(s): Superficial blood clots in legs during . History of kidney stones. Severe varicose veins in bilateral lower extremities. History of diverticulitis. EXCESSIVE BLEEDING AND CLOTTING WITH MENSES AND THICKENED UTERINE WALL. History of Any Multi-Drug Resistant Organisms: None Reported Past Surgical History: Adenoidectomy, Breast Surgery, Tonsillectomy Additional Past Surgical History / Comment(s): BREAST LUMPECTOMIES LEFT X2 AND RIGHT X1 - BENIGN, D&C. Past Anesthesia/Blood Transfusion Reactions: No Reported Reaction Past Psychological History: Anxiety Smoking Status: Never smoker Past Alcohol Use History: None Reported Past Drug Use History: None Reported - Past Family History Mother Family Medical History: Cancer Additional Family Medical History / Comment(s): MELANOMA. Medications and Allergies Home Medications Medication Instructions Recorded Confirmed Type Ipk-Gfri-Bznqo Acid 1 each PO DAILY 01/28/14 12/06/21 History [-U Capsule] PARoxetine HCL [Paxil Cr] 50 mg PO HS 12/06/21 12/06/21 History Allergies Allergy/AdvReac Type Severity Reaction Status Date / Time No Known Allergies Allergy Verified 12/06/21 10:36 Exam - OBG Physical Exam Abdomen: bowel sounds normal, no diffuse tenderness, no bruit present, no guarding noted, no hepatomegaly, no splenomegaly, no mass Vulva: both: normal Vagina: normal moisture, no discharge Cervix: no lesion, no discharge Uterus: enlarged (Uterus is enlarged approximately 9 weeks size.) Assessment and Plan Assessment: This is a pleasant 40-year-old 6 para 4 female with long-standing menorrhagia with negative evaluation other than multiple small uterine fibroids. Patient is requesting trial of endometrial ablation at this time. Plan is hysteroscopy, D&C, and NovaSure endometrial ablation. Patient does understand the surgery and risks and risks of infection, bleeding, possible uterine perforation, and/or thermal injury. Also discussed with Dionne the fact that her uterus is enlarged and sometimes the ablation is less effective or cannot be performed. All of her questions were answered and a written consent is obtained. (1) Menorrhagia Status: Chronic Code(s): N92.0 - EXCESSIVE AND FREQUENT MENSTRUATION WITH REGULAR CYCLE SNOMED Code(s): 784538902 (2) Uterine fibroid Status: Chronic Code(s): D25.9 - LEIOMYOMA OF UTERUS, UNSPECIFIED SNOMED Code(s): 53691348
[~2021-12-08] MED LIST changes: +ACETAMINOPHEN TAB 500 MG TAB ONE; +ACETAMINOPHEN TAB 500 MG TAB PO ONE; +DEXAMETHASONE SOD PHOSPHATE 4 MG/ML 1 ML VIAL IV ONE; +HYDROmorphone 0.5 MG/0.5 ML SYRINGE IVP PRN; +KETOROLAC 15 MG/ML 1 ML VIAL ONE; +LACTATED RINGERS 1,000 ML IV SCH; +LIDOCAINE 1% (10MG/ML) FOR IV START INTRADERMA ONE; +LIDOCAINE 2% INJ 20 MG/ML (2 ML VIAL) ONE; +MIDAZOLAM 2 MG/2 ML VIAL ONE; +ONDANSETRON 4 MG/2 ML VIAL IVP ONE; +PROPOFOL 10 MG/ML 20 ML VIAL IV ONE; +fentaNYL (PF) 50 MCG/ML 2 ML AMP ONE
--- NOTE | 2021-12-08 07:59 | P.OP ---
Date of Procedure: 12/08/21 Preoperative Diagnosis: Refractory menorrhagia Postoperative Diagnosis: Same Procedure(s) Performed: #1: Hysteroscopy. #2: Dilation and curettage. #3: NovaSure endometrial ablation. Anesthesia: other (LMA) Surgeon: Tanner Leonardo Estimated Blood Loss (ml): 10 Urine output (ml): 50 Pathology: other (Uterine contents) Condition: stable Disposition: PACU Indications for Procedure: Please see dictated H&P for intimate details of this patient's admission. Brief summary this is a pleasant 40-year-old 6 para 4 female with long- standing menorrhagia status post D&C in July that showed negative pathology. Patient has known small uterine fibroids. She's had persistent bleeding at this time is requesting trial of endometrial ablation for treatment. She does understand this procedure and risks and risks of infection, bleeding, possible uterine perforation, and/or thermal injury. All the patient's questions are answered and a written consent is obtained. Operative Findings: This patient had a normal-appearing endometrial cavity. Description of Procedure: This patient is taken to the operating room where she is laid in the supine position. She subsequently undergoes general anesthesia without incident. With an adequate level of anesthesia was placed in dorsal lithotomy position. Examination under anesthesia shows a slightly enlarged uterus. Patient has a vaginal perineal prep and drape. Bladder is drained this time for 50 mL of clear urine. Weighted retractor is placed in the posterior vagina. The anterior lip of the cervix was grabbed with an Allis clamp. I then gently sound the uterine cavity to 9.5 cm. Serial dilation is done to allow the hysteroscope easily uterine cavity. Using saline solution hysteroscopy is performed and the uterine cavity is visualized and measured a length of 6.5 cm. With this done the hysteroscope was removed. The cervix is dilated slightly more to allow a small curette easily and the uterine cavity. Gentle but thorough 4 quadrant curettage is then done. The NovaSure device is then opened and appears to be intact. Set at a length of 6.5 cm and opens up to a width of 4.7 cm. It then passes the cavity integrity test after the cervix is sealed. It is enabled at 168 W for 53 seconds. NovaSure device is then removed. Hysteroscopy is performed again and the uterine cavity appears to be ablated well up until the endocervix. This done the procedure is ended. The Allis clamp and weighted speculum removed. All counts are correct 3. There are no complications. Patient is awakened from anesthesia and taken recovery room satisfactory condition.
[2021-12-08 08:10] VITALS: TEMP 97.3
[2021-12-08 09:03] VITALS: RESP 16
[2021-12-08 09:16] VITALS: BP 134/83; PULSE 56
== END | disposition home or self-care (01) ==
LOC: OR 06:29
PROVIDERS: ATTEND Obstetrics & Gynecology
DX: N92.0 Excessive and frequent menstruation with regular cycle (principal); I83.93 Asymptomatic varicose veins of bilateral lower extremities; Z86.718 Personal history of other venous thrombosis and embolism; Z87.442 Personal history of urinary calculi; Z87.19 Personal history of other diseases of the digestive system; Z98.890 Other specified postprocedural states; F41.9 Anxiety disorder, unspecified; Z80.8 Family history of malignant neoplasm of other organs or systems; Z79.899 Other long term (current) drug therapy
CPT/HCPCS: 81025; 88305; 58563; J2250; J1100; J2405; J3010; J1885; J2704; J2001

== ENCOUNTER → 2023-07-24 | Outpatient (CLI) | payer OTHER ==
--- NOTE | 2023-07-24 15:28 | MM ---
Reason for Exam: Follow-up at short interval from prior study. Last mammogram was performed 1 year(s) and 1 month(s) ago. Patient History: Menarche at age 11. First Full-Term at age 28. Late child-bearing (after 28). Excisional Biopsy on the Left side. Excisional Biopsy on the Right side. 10/16/2016, Benign Core Biopsy on the right side. Paternal aunt had breast cancer. Maternal aunt had breast cancer. Maternal aunt had breast cancer. Maternal aunt had breast cancer. Last menstrual period: 07/09/2023 Risk Values: Ashley 5 year model risk: 2.8%. NCI Lifetime model risk: 20.2%. Tissue Density: The breasts are heterogeneously dense, which may obscure small masses. Findings: Analyzed By CAD. Dense bilateral tissues. No suspicious microcalcification. There is asymmetric density are redemonstrated. Microclip superior posterior right breast from prior biopsy. Further ultrasound evaluation is recommended. Overall Assessment: Incomplete: need additional imaging evaluation, BI-RAD 0 Management: Diagnostic Breast Ultrasound of both breasts. Electronically signed and approved by: Avinash Mayorga M.D. Radiologist
--- NOTE | 2023-07-24 16:26 | USB ---
Reason for Exam: Mammographic abnormality. Patient History: Menarche at age 11. First Full-Term at age 28. Late child-bearing (after 28). Excisional Biopsy on the Left side. Excisional Biopsy on the Right side. 10/16/2016, Benign Core Biopsy on the right side. Paternal aunt had breast cancer. Maternal aunt had breast cancer. Maternal aunt had breast cancer. Maternal aunt had breast cancer. Risk Values: Ashley 5 year model risk: 2.8%. NCI Lifetime model risk: 20.2%. Technique: Method: Whole Breast Handheld. Prior Study Comparison: 07/21/2020 Left Diagnostic Mammogram, [facility]. 07/21/2021 Bilateral Diagnostic Mammogram, [facility]. 06/16/2022 Bilateral MG 3D diag mammo w/cad ANTOINETTE, [facility]. Findings: The whole breast of both breasts, the axilla of both breasts and the retroareolar of both breasts were scanned. A complete US of all four quadrants of both breasts, axilla, and retro-areolar region were reviewed. Right: * Very dense tissues are present throughout. * No discrete solid or cystic lesion or axillary lymphadenopathy. Left: * Very dense tissues are present throughout. * At the 2:00 position, 10 cm from the nipple, there is redemonstration of a 1.2 x 0.9 x 0.5 cm oval circumscribed hypoechoic mass with through transmission. Given stability for at least a year, most likely a benign fibroadenoma. * At the 11:00 position, 5 cm from the nipple, there is a slightly lobulated hypoechoic mass with through transmission measuring 1.2 x 1.2 x 1.1 cm also in posterior true transmission. A couple small areas of satellite nodularity measuring up to 5 mm are also redemonstrated, unchanged. * No other solid or cystic lesion or axillary lymphadenopathy. Overall Assessment: Benign, BI-RAD 2 Management: Diagnostic Mammogram of both breasts in 1 year. SEE NOTE BELOW IN REGARDS TO PATIENT'S INCREASED LIFETIME RISK SCORE. A clinical breast exam by your physician is recommended on an annual basis and results should be correlated with mammographic findings. This exam should not preclude additional follow-up of suspicious palpable abnormalities. Results were given to the patient verbally at the time of exam. Note on Ashley scores and lifetime risk: 1. A Ashley score greater than 3% is considered moderate risk. If this is the case, consider specialist referral to assess eligibility for a risk reducing agent. 2. If overall lifetime risk for the development of breast cancer is 20% or higher, the patient may qualify for future screening with alternating mammogram and breast MRI. Electronically signed and approved by: Avinash Mayorga M.D. Radiologist
== END | disposition home or self-care (01) ==
LOC: RADMAMWWP 14:54
PROVIDERS: ATTEND Obstetrics & Gynecology
DX: R92.333 Mammographic heterogeneous density, bilateral breasts (principal); Z80.3 Family history of malignant neoplasm of breast
CPT/HCPCS: 77066; 76641; G0279; 77062